=== PATIENT | male | born 2000 | race Caucasian/White ===

== ENCOUNTER 2021-02-06 21:33 | Emergency (ER) | payer SELFPAY ==
[~2021-02-06] VITALS: Ht 180.3 cm; Wt 81.6 kg
[2021-02-06 21:40] VITALS: BP 137/91
[2021-02-06] MEDS ORDERED: ACETAMINOPHEN ES 500 MG TABLET ONE (21:55)
[2021-02-06] MEDS ORDERED: TDAP [DIPH/PERTUSSIS/TET] 0.5 ML VIAL IM ONE ×2 (21:56→22:00)
[2021-02-06] MEDS ORDERED: ACETAMINOPHEN ES 500 MG TABLET PO ONE (22:00)
--- NOTE | 2021-02-06 22:20 | NUR ---
PA AT BED SIDE FOR LACERATION CARE
[2021-02-06] MEDS ORDERED: TRAMADOL HCL 50 MG TABLET ONE (22:28)
[2021-02-06] MEDS ORDERED: CEPH500C2 PO (23:10)
[2021-02-06] MEDS ORDERED: IBUP-1955 PO (23:10)
[2021-02-06] MEDS ORDERED: TRAMADOL HCL 50 MG TABLET PO ONE (23:30)
--- NOTE | 2021-02-07 | NUR ---
Patient discharged to home in stable condition. Rx and Written and verbal after care instructions given. Patient verbalizes understanding of instruction.
== END 2021-02-07 00:13 | disposition home or self-care (01) ==
LOC: ER 21:33
DX: S41.112A Laceration without foreign body of left upper arm, initial encounter (principal); S21.212A Laceration without foreign body of left back wall of thorax without penetration into thoracic cavity, initial encounter; S71.112A Laceration without foreign body, left thigh, initial encounter; R07.81 Pleurodynia; Z79.899 Other long term (current) drug therapy; W17.89XA Other fall from one level to another, initial encounter; Y93.89 Activity, other specified; Y92.89 Other specified places as the place of occurrence of the external cause; Y99.8 Other external cause status
CPT/HCPCS: 12002; 71100; 73060; 73552; 90471; 90715; 99284; A6403 ×2

== ENCOUNTER 2021-02-08 22:43 | Emergency (ER) | payer SELFPAY ==
[~2021-02-08] VITALS: Ht 180.3 cm; Wt 81.6 kg
[~2021-02-08 22:43] MED LIST: CEPH500C2 PO; IBUP-1955 PO
[2021-02-08 22:45] VITALS: BP 124/83
--- NOTE | 2021-02-08 23:27 | NUR ---
Patient discharged to home in stable condition. Written and verbal after care instructions given. Patient verbalizes understanding of instruction. Pt ambulatory with a steady gait
== END 2021-02-08 23:28 | disposition home or self-care (01) ==
LOC: ER 22:43
DX: S71.112D Laceration without foreign body, left thigh, subsequent encounter (principal); X58.XXXD Exposure to other specified factors, subsequent encounter

== ENCOUNTER 2021-02-16 15:41 | Emergency (ER) | payer MEDICAID ==
[~2021-02-16] VITALS: Ht 180.3 cm; Wt 81.6 kg
[2021-02-16 15:48] VITALS: BP 132/80
--- NOTE | 2021-02-16 16:00 | NUR ---
SUTURE REMOVED BY GENO MONTOYA
--- NOTE | 2021-02-16 16:03 | NUR ---
Patient discharged to home in stable condition. Written and verbal after care instructions given. Patient verbalizes understanding of instruction.
== END 2021-02-16 16:04 | disposition home or self-care (01) ==
LOC: ER 15:45
DX: S51.812D Laceration without foreign body of left forearm, subsequent encounter (principal); S71.112D Laceration without foreign body, left thigh, subsequent encounter; S31.821D Laceration without foreign body of left buttock, subsequent encounter; X58.XXXD Exposure to other specified factors, subsequent encounter

== ENCOUNTER 2021-09-15 19:40 | Emergency (ER) | payer MEDICAID ==
[~2021-09-15] VITALS: Ht 180.3 cm; Wt 77.1 kg
[2021-09-15 21:10] VITALS: BP 120/76
[2021-09-15] MEDS ORDERED: CEPHALEXIN MONOHYDRATE 500 MG CAPSULE PO ONE ×2 (21:30→21:34)
[2021-09-15] MEDS ORDERED: SULFAMETH/TRIMETH 800/160 MG 1 UDTAB TABLET PO ONE (21:30)
[2021-09-15] MEDS ORDERED: SULF1TAB48 PO (21:31)
[2021-09-15] MEDS ORDERED: CEPH500T PO (21:31)
[2021-09-15] MEDS ORDERED: SULFAMETH/TRIMETH 800/160 MG 1 UDTAB TABLET ONE (21:34)
--- NOTE | 2021-09-15 21:34 | NUR ---
Patient discharged to home in stable condition. Written and verbal after care instructions given. Patient verbalizes understanding of instruction.
== END 2021-09-15 21:39 | disposition home or self-care (01) ==
LOC: ER 19:40
DX: L73.9 Follicular disorder, unspecified (principal)